=== PATIENT | male | born 1960 | race Caucasian/White ===

== ENCOUNTER 2017-09-20 12:54 | Emergency (ER) | payer MEDICARE, OTHER ==
[~2017-09-20] VITALS: Ht 182.9 cm; Wt 109.1 kg
[2017-09-20 12:57] VITALS: Ht 182.9 cm; Wt 109.1 kg
[2017-09-20] MEDS ORDERED: LORAZEPAM 2 MG INJ IV STA (13:03)
[2017-09-20] MEDS ORDERED: SOD CHLORIDE 0.9% 1,000 ML IV ONE (13:30)
[2017-09-20 13:36] LABS: BASOPHILS % 0.4 % (0.0-2.0); EOSINOPHILS # 0.3 10^3/ul (0.0-0.5); EOSINOPHILS % 3.7 % (0.0-7.0); HEMATOCRIT 38.2 % (42.0-52.0); HEMOGLOBIN 13.7 g/dl (14.0-18.0); LYMPHOCYTES # 1.7 10^3/ul (0.8-2.9); LYMPHOCYTES % 24.5 % (15.0-51.0); MEAN CORPUSCULAR HEMOGLOBIN 31.6 pg (29.0-33.0); MEAN CORPUSCULAR HGB CONC 35.9 g/dl (32.0-37.0); MEAN PLATELET VOLUME 8.8 fl (7.4-10.4); MONOCYTE # 0.8 10^3/ul (0.3-0.9); MONOCYTES % 11.7 % (0.0-11.0); NEUTROPHILS % 59.3 % (39.0-77.0); PLATELET COUNT 280 10^3/UL (140-415); RED BLOOD COUNT 4.34 10^6/ul (4.70-6.10); RED CELL DISTRIBUTION WIDTH 12.7 % (11.5-14.5); WHITE BLOOD COUNT 6.8 10^3/ul (4.8-10.8)
[2017-09-20 13:54] LABS: ALANINE AMINOTRANSFERASE 151 IU/L (13-69); ALBUMIN 4.4 g/dl (3.3-4.9); ALBUMIN/GLOBULIN RATIO 1.29; ALKALINE PHOSPHATASE 81 IU/L (42-121); ANION GAP 17 (8-16); ASPARTATE AMINO TRANSFERASE 108 IU/L (15-46); BILIRUBIN,INDIRECT 1.1 mg/dl (0-1.1); BILIRUBIN,TOTAL 1.1 mg/dl (0.2-1.3); BLOOD UREA NITROGEN 18 mg/dl (7-20); CALCIUM 8.9 mg/dl (8.4-10.2); CARBON DIOXIDE 24 mmol/L (21-31); CHLORIDE 104 mmol/L (97-110); CREATININE 1.36 mg/dl (0.61-1.24); GLUCOSE 102 mg/dl (70-220); POTASSIUM 3.8 mmol/L (3.5-5.1); SODIUM 141 mmol/L (135-144); TOTAL PROTEIN 7.8 g/dl (6.1-8.1)
[2017-09-20 13:56] LABS: ACETAMINOPHEN < 10.0 ug/ml (10.0-30.0); ETHANOL < 10.0 mg/dl; SALICYLATE < 1.0 mg/dl (5.0-30.0)
[2017-09-20 14:11] LABS: TROPONIN-I < 0.012 ng/ml (0.00-0.12)
[2017-09-20 17:04] VITALS: BP 149/90; PULSE 76; RESP 12; TEMP 98.3
--- NOTE | 2017-09-20 21:44 | ERD ---
ER Documentation Chief Complaint Chief Complaint "not feeling well", shaking/thrusty/bodyache used meth x8d/heroine x3days HPI 57-year-old man brought in by EMS after using methamphetamines, he feels agitated complains of body aches and withdrawal. He has a history of heroin abuse states he has not used heroin since yesterday. He is more concerned about his methamphetamine a use and symptoms of anxiety. He denies chest pain or shortness of breath, no fevers or chills, no vomiting or diarrhea. Patient was transported here by EMS without further complaints ROS All systems reviewed and are negative except as per history of present illness. Allergies Allergies: Coded Allergies: No Known Allergy (Unverified , 09/20/17) PMhx/Soc Drug abuse History of Surgery: No Anesthesia Reaction: No Hx Neurological Disorder: Yes (nerve damage to legs) Hx Respiratory Disorders: No Hx Cardiac Disorders: Yes (HTN/HYPERLIPIDEMIA) Hx Psychiatric Problems: No Hx Miscellaneous Medical Probl: Yes (DM) Hx Alcohol Use: Yes (occassional ) Hx Substance Use: Yes (meth x8days/heroine x2days last used in am) Hx Tobacco Use: Yes Smoking Status: Current every day smoker FmHx Family History: No diabetes Physical Exam Vitals Vital Signs Date Time Temp Pulse Resp B/P Pulse Ox O2 Delivery O2 Flow Rate FiO2 09/20/17 17:04 98.3 76 12 149/90 99 Room Air 09/20/17 15:00 98.3 94 12 145/90 97 Room Air 09/20/17 12:57 98.3 95 12 144/82 98 Physical Exam GENERAL: Well-developed, well-nourished, well-hydrated, in no apparent distress , looks nontoxic in appearance HEENT: Moist mucous membranes, pink conjunctiva, no cervical spine tenderness or step-off deformities, no goiter, no jaundice or icterus, extraocular movements intact without pain. No submandibular induration, and no pharyngeal erythema NEURO: Alert and oriented 3, cranial nerves II through XII intact bilaterally, pupils equal round reactive to light, no focal deficits or facial asymmetry, sensation intact distally Strength 5/5 in upper and lower extremities bilaterally CARDIAC: Regular rate and rhythm, no murmurs rubs or gallops LUNGS: Clear bilaterally no wheezing crackles or stridor ABDOMEN: Soft nontender, no guarding, no rigidity, no rebound, no psoas sign no obturator sign. Normoactive bowel sounds SKIN: Warm and dry to touch, no abrasions, contusions, or hematomas, no lacerations, no ecchymosis, no target lesions, and without ulcers EXTREMITIES: No clubbing cyanosis or edema, calves are bilaterally symmetrical, no Homans sign, no popliteal cord sign. Distal pulses equal and bilateral PSYCH: Normal affect without agitation or irritability Result Diagram: 09/20/17 1317 09/20/17 1317 Results 24 hrs Laboratory Tests Test 09/20/17 13:17 White Blood Count 6.810^3/ul Red Blood Count 4.3410^6/ul Hemoglobin 13.7g/dl Hematocrit 38.2% Mean Corpuscular Volume 88.0fl Mean Corpuscular Hemoglobin 31.6pg Mean Corpuscular Hemoglobin Concent 35.9g/dl Red Cell Distribution Width 12.7% Platelet Count 21909^3/UL Mean Platelet Volume 8.8fl Neutrophils % 59.3% Lymphocytes % 24.5% Monocytes % 11.7% Eosinophils % 3.7% Basophils % 0.4% Nucleated Red Blood Cells % 0.0/100WBC Neutrophils # 4.010^3/ul Lymphocytes # 1.710^3/ul Monocytes # 0.810^3/ul Eosinophils # 0.310^3/ul Basophils # 0.010^3/ul Nucleated Red Blood Cells # 0.010^3/ul Sodium Level 141mmol/L Potassium Level 3.8mmol/L Chloride Level 104mmol/L Carbon Dioxide Level 24mmol/L Anion Gap 17 Blood Urea Nitrogen 18mg/dl Creatinine 1.36mg/dl Glucose Level 102mg/dl Calcium Level 8.9mg/dl Total Bilirubin 1.1mg/dl Direct Bilirubin 0.00mg/dl Indirect Bilirubin 1.1mg/dl Aspartate Amino Transf (AST/SGOT) 108IU/L Alanine Aminotransferase (ALT/SGPT) 151IU/L Alkaline Phosphatase 81IU/L Troponin I < 0.012ng/ml Total Protein 7.8g/dl Albumin 4.4g/dl Globulin 3.40g/dl Albumin/Globulin Ratio 1.29 Salicylates Level < 1.0mg/dl Acetaminophen Level < 10.0ug/ml Ethyl Alcohol Level < 10.0mg/dl Current Medications Medications (Trade) Dose Ordered Sig/Joycelyn Route PRN Reason Start Time Stop Time Status Last Admin Dose Admin Lorazepam 1 mg 1 mg ONCE STAT IV 09/20/17 13:03 09/20/17 13:05 DC 09/20/17 13:14 Sodium Chloride (NS) 1,000 ml @ 1,000 mls/hr Q1H ONCE IV 09/20/17 13:30 09/20/17 14:29 DC 09/20/17 13:15 Procedures/MDM IV line was established patient was placed on summer law associate rhythm strip revealed a sinus rhythm at about 80 bpm with upright P and T waves. Patient was afebrile I administered 1 L normal saline intravenously and lorazepam 1 mg IV 1. CBC and electrolytes were normal, liver function tests were normal, troponin was negative. Patient refused to provide urine, aspirin, alcohol, Tylenol levels negative. Observation Note: Time: 5 hours Family Hx: No Hypertension Evaluation: Multiple exams showed improving symptoms and no evidence of worsening mental status or active withdrawal. Vital signs remained normal and patient felt much better after above interventions. firestop/containment worker consultation was performed in the ED, both verbal and written recommendations were provided to the patient. Differential diagnoses considered, included but not limited to acute coronary syndrome, pulmonary embolism, aortic dissection, abdominal aortic aneurysm, sepsis, stroke, meningitis, encephalitis, pneumonia, appendicitis, cholecystitis , bowel obstruction, pyelonephritis, nephrolithiasis, cystitis, as well as metabolic, hematologic, and electrolyte abnormalities. As well as abscess, cellulitis, fractures, and dislocations. Patient feels much better at this time, and vital signs are normal, symptoms have improved. I did give strict instructions to return to the ED if symptoms continue or worsen, patient will otherwise follow-up with primary care physician. Patient understood instructions and agreed to plan. Disclaimer: Inadvertent spelling and grammatical errors are likely due to EHR/ dictation software use and do not reflect on the overall quality of patient care. Also, please note that the electronic time recorded on this note does not necessarily reflect the actual time of the patient encounter. Departure Diagnosis: Primary Impression: Methamphetamine abuse Additional Impression: Anxiety attack Condition: Good Patient Instructions: Treating Heroin Addiction, Understanding Methamphetamine Abuse and Addiction, Anxiety Reaction NENA MULLEN MD Sep 20, 2017 21:43
== END 2017-09-20 17:07 | disposition home or self-care (01) ==
LOC: E/R 12:54
DX: F15.10 Other stimulant abuse, uncomplicated (principal); F41.0 Panic disorder [episodic paroxysmal anxiety]; I10 Essential (primary) hypertension; E11.9 Type 2 diabetes mellitus without complications; F17.210 Nicotine dependence, cigarettes, uncomplicated
CPT/HCPCS: 36415; 80053; 80306; 84484; 85025; 96374; 99284; J2060; J7030

== ENCOUNTER 2017-10-07 13:05 | Observation (INO) | payer MEDICARE, OTHER ==
[~2017-10-07] VITALS: Ht 182.9 cm; Wt 110.0 kg
[2017-10-07 13:09] VITALS: Ht 182.9 cm; Wt 110.0 kg
--- NOTE | 2017-10-07 13:34 | ERD ---
ER Documentation Chief Complaint Chief Complaint BIBA FOR NON RADIATING CP 02/17. HPI Patient is a 57-year-old male who presents with sudden onset, waxing and waning substernal chest pain that is pressure-like since around 10:30 AM. He states that it occurred while he was in a meeting at rest. He reports associated dyspnea, lightheadedness, mild nausea and diaphoresis. He denies radiation of pain to neck, arms or back. He states that the intensity diminished significantly after receiving aspirin and nitroglycerin, but has recurred slightly since that time. ROS All systems reviewed and are negative except as per history of present illness. Medications Home Meds Active Scripts Darunavir/Cobicistat (Prezcobix 800 mg-150 mg Tablet) 1 Each Tablet, 1 EACH PO DAILY for 90 Days, TAB Prov:RUDOPLH WRIGHT MD 10/07/17 Emtricitabine/Tenofov Alafenam (Descovy 200-25 mg Tablet) 1 Each Tablet, 1 EACH PO DAILY for 90 Days, TAB Prov:RUDOLPH WRIGHT MD 10/07/17 Reported Medications Ibuprofen* (Ibuprofen*) 800 Mg Tab, 800 MG PO TID Y for PAIN, TAB 10/07/17 Aspirin* (Aspirin* Chew) 81 Mg Tab.chew, 81 MG PO DAILY, TAB.CHEW 10/07/17 Tamsulosin Hcl* (Tamsulosin Hcl*) 0.4 Mg Cap.er.24h, 0.4 MG PO HS, CAP 10/07/17 Discontinued Reported Medications Emtricitabine/Tenofov Alafenam (Descovy 200-25 mg Tablet) 1 Each Tablet, 1 EACH PO DAILY, TAB 10/07/17 Allergies Allergies: Coded Allergies: No Known Allergy (Unverified , 09/20/17) PMhx/Soc Past medical history: CVA, HIV Past surgical history: Stent in artery, question carotid Social history: Patient smokes methamphetamine, states last use was September 14, but had ER visit on September 20 for intoxication. Smoked cigarettes in the past but quit, resumed 1 week ago. Denies alcohol. History of Surgery: No Anesthesia Reaction: No Hx Neurological Disorder: Yes (nerve damage to legs) Hx Respiratory Disorders: No Hx Cardiac Disorders: Yes (HTN/HYPERLIPIDEMIA) Hx Psychiatric Problems: No Hx Miscellaneous Medical Probl: Yes (DM,HIV) Hx Alcohol Use: Yes (occassional ) Hx Substance Use: Yes (METH) Hx Tobacco Use: Yes Smoking Status: Current some day smoker FmHx Family History: coronary disease (Brother at age 52), No diabetes Physical Exam Vitals Vital Signs Date Time Temp Pulse Resp B/P Pulse Ox O2 Delivery O2 Flow Rate FiO2 10/07/17 19:29 82 20 116/80 100 Room Air 10/07/17 15:00 86 17 113/75 100 Room Air 10/07/17 13:31 89 17 113/75 100 Room Air 10/07/17 13:09 98.4 82 18 113/75 99 Physical Exam Const: Alert, no acute distress Head: Atraumatic Eyes: Normal Conjunctiva, No pallor, no icterus ENT: Normal External Ears, Nose and Mouth. Mucous membranes moist Neck: Full range of motion. No JVD Resp: Clear to auscultation bilaterally, No wheezes, no rales Cardio: Regular rate and rhythm, no murmurs. Mild parasternal tenderness, palpation does not reproduce pain Abd: Soft, non tender, non distended. Skin: No petechiae or rashes Back: No midline or flank tenderness Ext: No cyanosis, or edema Neur: Awake and alert, Cranial nerves II through XII intact bilaterally, strength and sensation grossly intact in 4 extremities. Psych: Normal Mood and Affect Result Diagram: 10/07/17 1330 10/07/17 1330 Results 24 hrs Laboratory Tests Test 10/07/17 13:30 10/07/17 14:18 White Blood Count 7.010^3/ul Red Blood Count 4.3910^6/ul Hemoglobin 13.6g/dl Hematocrit 38.7% Mean Corpuscular Volume 88.2fl Mean Corpuscular Hemoglobin 31.0pg Mean Corpuscular Hemoglobin Concent 35.1g/dl Red Cell Distribution Width 12.7% Platelet Count 32029^3/UL Mean Platelet Volume 9.0fl Neutrophils % 53.6% Lymphocytes % 33.0% Monocytes % 9.3% Eosinophils % 3.4% Basophils % 0.4% Nucleated Red Blood Cells % 0.0/100WBC Neutrophils # 3.710^3/ul Lymphocytes # 2.310^3/ul Monocytes # 0.710^3/ul Eosinophils # 0.210^3/ul Basophils # 0.010^3/ul Nucleated Red Blood Cells # 0.010^3/ul Sodium Level 140mmol/L Potassium Level 4.1mmol/L Chloride Level 106mmol/L Carbon Dioxide Level 27mmol/L Anion Gap 11 Blood Urea Nitrogen 19mg/dl Creatinine 1.35mg/dl Glucose Level 98mg/dl Calcium Level 8.7mg/dl Troponin I < 0.012ng/ml B-Type Natriuretic Peptide 13PG/ML Urine Opiates Screen Negative Urine Barbiturates Negative Urine Amphetamines Screen Negative Urine Benzodiazepines Screen Positive Urine Cocaine Screen Negative Urine Cannabinoids Negative Current Medications Medications (Trade) Dose Ordered Sig/Joycelyn Route PRN Reason Start Time Stop Time Status Last Admin Dose Admin IV Flush (NS 3 ml) 3 ml PER PROTOCOL IV 10/07/17 16:30 UNV Ondansetron HCl (Zofran Tab) 4 mg Q6H PRN PO NAUSEA AND/OR VOMITING 10/07/17 16:30 UNV Aspirin (Aspirin) 81 mg DAILY PO 10/08/17 09:00 UNV Acetaminophen (Tylenol Tab) 650 mg Q6H PRN PO PAIN LEVEL 1-3 OR FEVER 10/07/17 16:30 UNV Acetaminophen/ Hydrocodone Bitart ([place] (5/325)) 1 tab Q6H PRN PO PAIN LEVEL 4-6 10/07/17 16:30 UNV Enoxaparin Sodium (Lovenox) 40 mg DAILY SC 10/08/17 09:00 UNV Tamsulosin HCl (Flomax) 0.4 mg HS PO 10/07/17 21:00 UNV Miscellaneous Information 1 each DAILY PO 10/08/17 09:00 10/08/17 09:00 DC Ondansetron HCl (Zofran Inj) 4 mg ER BRIDGE PRN IV NAUSEA AND/OR VOMITING 10/07/17 16:30 10/08/17 16:29 Acetaminophen (Tylenol Tab) 650 mg ER BRIDGE PRN PO MILD PAIN/FEVER 10/07/17 16:30 10/08/17 16:29 Cilostazol (Pletal) 100 mg BID PO 10/07/17 21:00 10/07/17 21:00 DC Chlorpromazine (Thorazine) 25 mg DAILY PO 10/08/17 09:00 10/08/17 09:00 DC Levothyroxine Sodium (Synthroid) 50 mcg DAILY PO 10/08/17 09:00 10/08/17 09:00 DC Metoprolol Tartrate (Lopressor) 25 mg BID PO 10/07/17 21:00 10/07/17 21:00 DC Miscellaneous Information 1 each DAILY PO 10/08/17 09:00 UNV Miscellaneous Information 1 each DAILY PO 10/08/17 09:00 UNV Procedures/MDM EKG read by me: Time 1305, rate 78 Rhythm: Normal sinus [place]: Normal Intervals: Normal ST-T waves: no ischemic changes Ectopy: No Q-waves: No Impression: No evidence of ischemia or arrhythmia MDM: Patient is a 57-year-old male who presents with acute substernal chest pain with some typical features for approximately 3 hours. He states that it has been waxing and waning. Chest x-ray and EKG are unremarkable. First troponin is negative. The patient received aspirin and nitroglycerin and had some relief. The patient has several risk factors including family history, history of vascular disease and drug abuse. I will admit him to telemetry observation for further cardiac workup. There are no features concerning for aortic dissection or pulmonary embolism. Departure Diagnosis: Primary Impression: Chest pain Chest pain type: unspecified Qualified Code: R07.9 - Chest pain, unspecified type Additional Impression: Methamphetamine abuse Condition: REYNALDO Barth MD Oct 07, 2017 13:34
[2017-10-07 13:50] LABS: BASOPHILS % 0.4 % (0.0-2.0); EOSINOPHILS # 0.2 10^3/ul (0.0-0.5); EOSINOPHILS % 3.4 % (0.0-7.0); HEMATOCRIT 38.7 % (42.0-52.0); HEMOGLOBIN 13.6 g/dl (14.0-18.0); LYMPHOCYTES # 2.3 10^3/ul (0.8-2.9); MEAN CORPUSCULAR HGB CONC 35.1 g/dl (32.0-37.0); MEAN CORPUSCULAR VOLUME 88.2 fl (82.0-101.0); MONOCYTE # 0.7 10^3/ul (0.3-0.9); MONOCYTES % 9.3 % (0.0-11.0); NEUTROPHIL # 3.7 10^3/ul (1.6-7.5); NEUTROPHILS % 53.6 % (39.0-77.0); PLATELET COUNT 229 10^3/UL (140-415); RED BLOOD COUNT 4.39 10^6/ul (4.70-6.10); RED CELL DISTRIBUTION WIDTH 12.7 % (11.5-14.5)
--- NOTE | 2017-10-07 13:56 | RADRPT ---
PROCEDURE: Chest x-ray CLINICAL INDICATION: Chest pain TECHNIQUE: Chest single view COMPARISON: None FINDINGS: The heart is normal in size. The pulmonary vessels are normal in caliber. The lungs are clear. Th e costophrenic angles are sharp. The visualized bony thorax is unremarkable. IMPRESSION: No acute cardiopulmonary disease. RPTAT: HH .Ambrocio Hernandez MD, Date Time Electronically viewed and signed by .Ambrocio Hernandez MD, MD on 10/07/2017 13:55 .W/
[2017-10-07 14:07] LABS: ANION GAP 11 (8-16); BLOOD UREA NITROGEN 19 mg/dl (7-20); CALCIUM 8.7 mg/dl (8.4-10.2); CARBON DIOXIDE 27 mmol/L (21-31); CHLORIDE 106 mmol/L (97-110); CREATININE 1.35 mg/dl (0.61-1.24); GLUCOSE 98 mg/dl (70-220); POTASSIUM 4.1 mmol/L (3.5-5.1); SODIUM 140 mmol/L (135-144)
[2017-10-07 14:20] LABS: B-TYPE NATRIURETIC PEPTIDE 13 PG/ML (0-125)
[2017-10-07 14:23] LABS: TROPONIN-I < 0.012 ng/ml (0.00-0.12)
[2017-10-07] MEDS ORDERED: EMTR1TAB16 PO ×2 (14:39→17:07)
[2017-10-07] MEDS ORDERED: TAMS0.4C2 PO (14:39)
[2017-10-07] MEDS ORDERED: ASPI81TA3 PO (14:39)
[2017-10-07] MEDS ORDERED: IBUP800T25 PO (14:40)
[2017-10-07 14:44] LABS: BARBITURATES Negative (NEGATIVE)
[2017-10-07 14:46] LABS: BENZODIAZEPINES Positive (NEGATIVE); CANNABINOIDS Negative (NEGATIVE); COCAINE Negative (NEGATIVE); OPIATES Negative (NEGATIVE)
--- NOTE | 2017-10-07 16:27 | HP ---
Date/Time of Note Date/Time of Note DATE: 10/07/17 TIME: 16:27 Assessment/Plan VTE Prophylaxis VTE Prophylaxis Intervention: SCD's Lines/Catheters IV Catheter Type (from Nrsg): Saline Lock Assessment/Plan Assessment/Plan 57 yo M with HIV on HAART, hx polysubstance abuse here with 1 day of chest pain. HEART score is 3-4 (hx slightly v moderately suspicious (0 v 1 point), age (1 point), 3+ risk factors (obesity, tob hx, CVA hx)--2 points). PLAN formal acs r/o with serial trops and tele monitoring cardiology eval in AM for stress eval TTE, a1c, lipids cont asa HIV: cont HAART h/o CVA: cont asa BPH: cont flomax h/o polysubstance abuse: limit narcotics cardiac diet but NPO at mn DVT prophx HPI/ROS Admit Date/Time Admit Date/Time Hx of Present Illness CC chest pain x 1 day HPI 57 yo M with pmhx CVA, BPH, HIV on HAART (last VL UD and CD4 ~1400 4 mos ago), polysubstance abuse (heroin, methamphetamine) who presents with 1 day of chest pain. Pt seen here in the ER 2 weeks ago for feeling unwell in the setting of polysubstance abuse, then has spent the past 2 weeks in 2 different detox facilities ([facility] and a place he cannot recall) and has been in inpatient substance abuse treatment for the past 2 days. Pt reports intermittent chest discomfort since this AM. Does not endorse SOB or LE swelling. Does not report fevers, chills, rashes, abd pain, nausea, or vomiting Re pt's CVA, states that was in December of this year and he had 2 stents placed into his neck at that time? PMH/Family/Social Past Medical History as per HPI home meds: flomax, asa, descovy, prezcobix Social History lives at a residential substance abuse facility Smoking Status: Former smoker Exam/Review of Systems Vital Signs Vitals Vital Signs Date Time Temp Pulse Resp B/P Pulse Ox O2 Delivery O2 Flow Rate FiO2 10/07/17 13:31 89 17 113/75 100 Room Air 10/07/17 13:09 98.4 Exam Exam nad EOMI MMM no mrg lungs clear abd soft no rashes no edema labs reviewed EKG report reviewed Labs Result Diagram: 10/07/17 1330 10/07/17 1330 RUDOLPH WRIGHT MD Oct 07, 2017 16:27
[2017-10-07] MEDS ORDERED: ONDANSETRON 4 MG INJ IV PRN (16:30)
[2017-10-07] MEDS ORDERED: HYDROCODONE/APAP (5/325) TAB PO PRN (16:30)
[2017-10-07] MEDS ORDERED: ACETAMINOPHEN 325 MG TAB PO PRN ×2 (16:30)
[2017-10-07] MEDS ORDERED: ONDANSETRON 4 MG TAB PO PRN (16:30)
[2017-10-07] MEDS ORDERED: NACL 0.9% 3 ML SYG IV SCH (16:30)
[2017-10-07] MEDS ORDERED: DARU1TAB PO (17:08)
[2017-10-07] MEDS ORDERED: CILOSTAZOL 100 MG TAB PO SCH (21:00)
[2017-10-07] MEDS ORDERED: METOPROLOL 25 MG TAB PO SCH (21:00)
[2017-10-07] MEDS ORDERED: TAMSULOSIN (SR) 0.4 MG CAP PO SCH (21:00)
[2017-10-07 21:29] VITALS: PULSE 82
[2017-10-08] VITALS (9 sets, daily range): BP systolic 105–124; BP diastolic 56–69; PULSE 79–86; RESP 18–20
[2017-10-08] MEDS ORDERED: TENOFOVIR ALAFENAMIDE XX SCH (09:00)
[2017-10-08] MEDS ORDERED: NON-FORMULARY/PATIENT OWN MED (Darunavir/Cobicistat (Prezcobix 800 mg-150 mg Tablet) 1 EAC XX SCH (09:00)
[2017-10-08] MEDS ORDERED: EMTRICITABINE XX SCH (09:00)
[2017-10-08] MEDS ORDERED: ASPIRIN 81 MG TAB PO SCH (09:00)
[2017-10-08] MEDS ORDERED: ENOXAPARIN 40 MG/0.4 ML SYG SC SCH (09:00)
[2017-10-08] MEDS ORDERED: NON-FORMULARY/PATIENT OWN MED (Emtricitabine/Tenofov Alafenam (Descovy 200-25 mg Tablet) 1 PO SCH (09:00)
[2017-10-08] MEDS ORDERED: CHLORPROMAZINE 25 MG TAB PO SCH (09:00)
[2017-10-08] MEDS ORDERED: NON-FORMULARY/PATIENT OWN MED (Emtricitabine/Tenofov Alafenam (Descovy 200-25 mg Tablet) 1 XX SCH (09:00)
[2017-10-08] MEDS ORDERED: DARUNAVIR XX SCH (09:00)
[2017-10-08] MEDS ORDERED: COBICISTAT XX SCH (09:00)
[2017-10-08] MEDS ORDERED: LEVOTHYROXINE 50 MCG TAB PO SCH (09:00)
[2017-10-08 09:30] LABS: BASOPHILS % 0.4 % (0.0-2.0); EOSINOPHILS # 0.2 10^3/ul (0.0-0.5); EOSINOPHILS % 4.7 % (0.0-7.0); HEMATOCRIT 42.9 % (42.0-52.0); LYMPHOCYTES # 1.6 10^3/ul (0.8-2.9); LYMPHOCYTES % 31.1 % (15.0-51.0); MEAN CORPUSCULAR HEMOGLOBIN 30.9 pg (29.0-33.0); MEAN CORPUSCULAR VOLUME 88.5 fl (82.0-101.0); MEAN PLATELET VOLUME 9.1 fl (7.4-10.4); MONOCYTE # 0.5 10^3/ul (0.3-0.9); MONOCYTES % 9.3 % (0.0-11.0); NEUTROPHIL # 2.8 10^3/ul (1.6-7.5); NEUTROPHILS % 54.3 % (39.0-77.0); PLATELET COUNT 253 10^3/UL (140-415); RED BLOOD COUNT 4.85 10^6/ul (4.70-6.10); RED CELL DISTRIBUTION WIDTH 12.5 % (11.5-14.5); WHITE BLOOD COUNT 5.1 10^3/ul (4.8-10.8)
[2017-10-08 09:52] LABS: ALBUMIN 3.8 g/dl (3.3-4.9); ALBUMIN/GLOBULIN RATIO 1.18; BILIRUBIN,INDIRECT 0.6 mg/dl (0-1.1); BILIRUBIN,TOTAL 0.6 mg/dl (0.2-1.3); CALCIUM 9.3 mg/dl (8.4-10.2); CHOL/HDL RATIO 3.3 RATIO; CREATININE 1.31 mg/dl (0.61-1.24); POTASSIUM 4.7 mmol/L (3.5-5.1)
--- NOTE | 2017-10-08 12:09 | RADRPT ---
Echocardiogram Report Patient Name: RADHA CARRANZA Gender: Male Date: 1960 Study Date: 08-Oct-2017 Special Education Educational Assistant: Hernandez Caldera [facility] Location: 5560 Ref. Physician: RUDOLPH WRIGHT Quality: Good Procedures: Transthoracic echocardiogram with complete 2D, M-Mode, and doppler examination. Indications: Chest Pain. 2D/M Mode Doppler Measurement Value Normal Ranges Measurement Value Normal Ranges LVIDd 2D 4.7 3.5 - 5.6 cm AV Peak Paulie 1.1 m/sec LVIDs 2D 3.5 2.1 - 4.1 cm AV Peak PG 4.8 mmHg LVPWd 2D 0.9 0.6 - 1.1 cm LVOT Peak Paulie 1.0 m/sec IVSd 2D 0.9 0.6 - 1.1 cm LVOT Peak PG 4.2 mmHg AoR Diam 2D 2.9 2.0 - 3.7 cm MV E Peak Paulie 0.7 m/sec EDV 2D 101.2 cm3 MV A Peak Paulie 0.7 m/sec ESV 2D 44.5 cm3 MV E/A 0.9 LA Dimen 2D 3.4 2.3 - 4.0 cm MV Decel Time 247 msec MV Decel [place] 3 MV E/A 0.9 TR Peak Paulie 2.0 m/sec TR Peak PG 16.6 mmHg RVSP 20.0 mmHg Findings Left Ventricle: Normal left ventricular systolic function. Normal left ventricular cavity size. Normal left ventricular wall thickness. Ejection fraction is visually estimated at 55 %. Tissue Doppler/Mitral Doppler indices are consistent with impaired relaxation (Stage I diastolic dysfunction). Right Ventricle: Normal right ventricular size. Normal right ventricular systolic function. Left Atrium: The left atrium is normal in size. Right Atrium: The right atrium is normal in size. Mitral Valve: Mitral valve leaflets appear mildly thickened. Mild mitral annular calcification. Trace mitral regurgitation. Aortic Valve: Normal appearance of the aortic valve. No significant aortic stenosis or insufficiency. Tricuspid Valve: Normal appearance of the tricuspid valve. Estimated peak PA systolic pressure 20 mmHg. There is trace tricuspid regurgitation. Pulmonic Valve: Normal pulmonic valve appearance. Pericardium: Normal pericardium with no significant pericardial effusion. Aorta: Normal aortic root. IVC: Normal size and normal respiratory collapse consistent with normal right atrial pressure. Conclusions Normal left ventricular systolic function. Normal left ventricular cavity size. Normal left ventricular wall thickness. Ejection fraction is visually estimated at 55 %. Tissue Doppler/Mitral Doppler indices are consistent with impaired relaxation (Stage I diastolic dysfunction). Normal right ventricular size. Normal right ventricular systolic function. The left atrium is normal in size. The right atrium is normal in size. No significant valvular stenosis or regurgitation seen. Normal pericardium with no significant pericardial effusion. Electronically Signed By: Mykel Thomas 08-Oct-2017 12:08:25 -0800 Patient Name: RADHA CARRANZA Study Date: 08-Oct-2017 [id number]
[2017-10-08] MEDS ORDERED: DARUNAVIR/COBICISTAT 1 EACH TABLET PO SCH (13:00)
--- NOTE | 2017-10-08 13:18 | CONS ---
Date/Time of Note Date/Time of Note DATE: 10/08/17 TIME: 13:12 Assessment/Plan Assessment/Plan Additional Assessment/Plan Chest discomfort, resolved Preserved ejection fraction HIV-positive History of methamphetamine use -Patient with chest discomfort at rest 2 days prior with no further symptoms. Symptoms are not affected by activity and prior to this episode, would run and bike ride approximately 4-5 miles at a time. Serial cardiac enzymes remain negative, ECG with no significant ischemic abnormalities and echocardiogram with preserved ejection fraction. Patient requesting to be discharged and will follow-up as an outpatient if further symptoms. This is reasonable given patient with no further symptoms and negative workup as mentioned above. Consultation Date/Type/Reason Admit Date/Time Type of Consultation: cv Reason for Consultation Chest pain Hx of Present Illness This is a 57-year-old male who presents with 2 days symptoms of chest pain. Patient woke up with pain the day prior to admission. Pain is aching like and burning in the mid chest. Activity does not improve or worsen the symptoms. Possibly arm movements could affect the chest discomfort. There was no associated shortness of breath, nausea. He is currently in inpatient drug rehab. He did let 1 of his superiors know and because of that, he was brought to the emergency room. He currently denies any chest pain, shortness of breath , palpitations or dizziness. Prior to being in rehab, patient was quite active , bike riding 4-5 miles and running on a frequent basis without exertional chest pain, shortness of breath or or syncope. 12 point review of systems was performed with all pertinent positives and negatives mentioned above and all else is negative Past Medical History HIV positive Family History Significant Family History: heart disease (Brother with heart disease in his 50s) Social History Smoking Status: Former smoker Drug Use: other (History of meth use but quit September 20 and currently in rehab) Exam/Review of Systems Vital Signs Vitals Vital Signs Date Time Temp Pulse Resp B/P Pulse Ox O2 Delivery O2 Flow Rate FiO2 10/08/17 12:21 86 10/08/17 11:36 98.4 19 118/62 95 10/07/17 19:29 Room Air Intake and Output 10/07/17 10/07/17 10/08/17 15:00 23:00 07:00 Intake Total 500 ml Balance 500 ml Exam No apparent distress Constitutional: alert, oriented Head: normocephalic Respiratory: clear to auscultation, normal air movement Cardiovascular: other (S1-S2 heard), regular rate and rhythm Gastrointestinal: bowel sounds, non-tender, soft Extremities: other (No edema) Results Result Diagram: 10/08/17 0844 10/08/17 0844 Results 24 hrs Laboratory Tests Test 10/07/17 13:30 10/07/17 14:18 10/07/17 19:55 10/08/17 01:55 White Blood Count 7.0 Red Blood Count 4.39 L Hemoglobin 13.6 L Hematocrit 38.7 L Mean Corpuscular Volume 88.2 Mean Corpuscular Hemoglobin 31.0 Mean Corpuscular Hemoglobin Concent 35.1 Red Cell Distribution Width 12.7 Platelet Count 229 Mean Platelet Volume 9.0 Neutrophils % 53.6 Lymphocytes % 33.0 Monocytes % 9.3 Eosinophils % 3.4 Basophils % 0.4 Nucleated Red Blood Cells % 0.0 Neutrophils # 3.7 Lymphocytes # 2.3 Monocytes # 0.7 Eosinophils # 0.2 Basophils # 0.0 Nucleated Red Blood Cells # 0.0 Sodium Level 140 Potassium Level 4.1 Chloride Level 106 Carbon Dioxide Level 27 Anion Gap 11 Blood Urea Nitrogen 19 Creatinine 1.35 H Glucose Level 98 Calcium Level 8.7 Troponin I < 0.012 < 0.012 < 0.012 B-Type Natriuretic Peptide 13 Urine Opiates Screen Negative Urine Barbiturates Negative Urine Amphetamines Screen Negative Urine Benzodiazepines Screen Positive Urine Cocaine Screen Negative Urine Cannabinoids Negative Test 10/08/17 08:44 White Blood Count 5.1 # Red Blood Count 4.85 Hemoglobin 15.0 Hematocrit 42.9 Mean Corpuscular Volume 88.5 Mean Corpuscular Hemoglobin 30.9 Mean Corpuscular Hemoglobin Concent 35.0 Red Cell Distribution Width 12.5 Platelet Count 253 Mean Platelet Volume 9.1 Neutrophils % 54.3 Lymphocytes % 31.1 Monocytes % 9.3 Eosinophils % 4.7 Basophils % 0.4 Nucleated Red Blood Cells % 0.0 Neutrophils # 2.8 Lymphocytes # 1.6 Monocytes # 0.5 Eosinophils # 0.2 Basophils # 0.0 Nucleated Red Blood Cells # 0.0 Sodium Level 140 Potassium Level 4.7 Chloride Level 106 Carbon Dioxide Level 28 Anion Gap 11 Blood Urea Nitrogen 17 Creatinine 1.31 H Glucose Level 99 Hemoglobin A1c 5.0 Calcium Level 9.3 Total Bilirubin 0.6 Direct Bilirubin 0.00 Indirect Bilirubin 0.6 Aspartate Amino Transf (AST/SGOT) 21 Alanine Aminotransferase (ALT/SGPT) 34 Alkaline Phosphatase 59 Total Protein 7.0 Albumin 3.8 Globulin 3.20 Albumin/Globulin Ratio 1.18 Triglycerides Level 100 Cholesterol Level 143 LDL Cholesterol, Calculated 80 HDL Cholesterol 43 Cholesterol/HDL Ratio 3.3 Medications Medications Current Medications Ondansetron HCl (Zofran Tab) 4 mg Q6H PRN PO NAUSEA AND/OR VOMITING; Start at 16:30 Aspirin (Aspirin) 81 mg DAILY PO Last administered on 10/08/17 09:45; Admin Dose 81 MG; Start 10/08/17 at 09:00 Acetaminophen (Tylenol Tab) 650 mg Q6H PRN PO PAIN LEVEL 1-3 OR FEVER; Start 10/07/17 at 16:30 Acetaminophen/ Hydrocodone Bitart (Arthur (5/325)) 1 tab Q6H PRN PO PAIN LEVEL 4 -6; Start 10/07/17 at 16:30 Enoxaparin Sodium (Lovenox) 40 mg DAILY SC Last administered on 10/08/17 09: 51; Admin Dose 40 MG; Start 10/08/17 at 09:00 Tamsulosin HCl (Flomax) 0.4 mg HS PO Last administered on 10/07/17 23:21; Admin Dose 0.4 MG; Start 10/07/17 at 21:00 Miscellaneous Information 1 each DAILY XX ; Start 10/08/17 at 09:00; Status UNV Miscellaneous Information (*Order Clarification Bulletin) MEDICATION REQUIRES CLARIFICATION: Q8H XX ; Start 10/08/17 at 09:00 Procedures Procedures ECG done today demonstrates sinus rhythm at 80 bpm, QRS 76 ms, no significant ischemic ST abnormalities Mykel Thomas DO Oct 08, 2017 13:18
--- NOTE | 2017-10-08 13:47 | DS ---
Date/Time of Note Date/Time of Note DATE: 10/08/17 TIME: 13:45 Discharge Summary Admission/Discharge Info Admit Date/Time Oct 07, 2017 at 16:19 Discharge Date/Time Discharge Diagnosis chest pain Patient Condition: Stable Consults cardiology Procedures troponins neg x 3 a1c 5.0 BNP 13 lipids: TC 143, TG 100, LDL 80, HDL 43 CXR no infiltrate TTE 11.29 Conclusions Normal left ventricular systolic function. Normal left ventricular cavity size. Normal left ventricular wall thickness. Ejection fraction is visually estimated at 55 %. Tissue Doppler/Mitral Doppler indices are consistent with impaired relaxation (Stage I diastolic dysfunction). Normal right ventricular size. Normal right ventricular systolic function. The left atrium is normal in size. The right atrium is normal in size. No significant valvular stenosis or regurgitation seen. Normal pericardium with no significant pericardial effusion. Hx of Present Illness CC chest pain x 1 day HPI 57 yo M with pmhx CVA, BPH, HIV on HAART (last VL UD and CD4 ~1400 4 mos ago), polysubstance abuse (heroin, methamphetamine) who presents with 1 day of chest pain. Pt seen here in the ER 2 weeks ago for feeling unwell in the setting of polysubstance abuse, then has spent the past 2 weeks in 2 different detox facilities ([place] and a place he cannot recall) and has been in inpatient substance abuse treatment for the past 2 days. Pt reports intermittent chest discomfort since this AM. Does not endorse SOB or LE swelling. Does not report fevers, chills, rashes, abd pain, nausea, or vomiting Re pt's CVA, states that was in December of this year and he had 2 stents placed into his neck at that time? Hospital Course Pt ruled out for acute coronary syndrome overnight with serial troponins and telemetry monitoring. TTE without significant dysfunction. Pt seen by cardiology service. Given pt's excellent functional status (able to bike several miles prior to admission), no indication for further inpatient cardiac evaluation per cardiology. Pt advised to follow up with PCP and schedule cardiology follow up if chest pain recurs. Home Meds Active Scripts Darunavir/Cobicistat (Prezcobix 800 mg-150 mg Tablet) 1 Each Tablet, 1 EACH PO DAILY for 90 Days, TAB Prov:RUDOLPH WRIGHT MD 10/07/17 Emtricitabine/Tenofov Alafenam (Descovy 200-25 mg Tablet) 1 Each Tablet, 1 EACH PO DAILY for 90 Days, TAB Prov:RUDOLPH WRIGHT MD 10/07/17 Reported Medications Ibuprofen* (Ibuprofen*) 800 Mg Tab, 800 MG PO TID Y for PAIN, TAB 10/07/17 Aspirin* (Aspirin* Chew) 81 Mg Tab.chew, 81 MG PO DAILY, TAB.CHEW 10/07/17 Tamsulosin Hcl* (Tamsulosin Hcl*) 0.4 Mg Cap.er.24h, 0.4 MG PO HS, CAP 10/07/17 Discontinued Reported Medications Emtricitabine/Tenofov Alafenam (Descovy 200-25 mg Tablet) 1 Each Tablet, 1 EACH PO DAILY, TAB 10/07/17 Follow-up Plan PCP within 7 days, Pt to call [facility] if any further chest pain Primary Care Provider Care Physician No Primary Pending Labs Laboratory Tests Test 10/07/17 14:18 10/07/17 19:55 10/08/17 01:55 10/08/17 08:44 Urine Opiates Screen Negative (NEGATIVE) Urine Barbiturates Negative (NEGATIVE) Urine Amphetamines Screen Negative (NEGATIVE) Urine Benzodiazepines Screen Positive (NEGATIVE) Urine Cocaine Screen Negative (NEGATIVE) Urine Cannabinoids Negative (NEGATIVE) Troponin I < 0.012ng/ml (0.00-0.12) < 0.012ng/ml (0.00-0.12) White Blood Count 5.110^3/ul (4.8-10.8) Red Blood Count 4.8510^6/ul (4.70-6.10) Hemoglobin 15.0g/dl (14.0-18.0) Hematocrit 42.9% (42.0-52.0) Mean Corpuscular Volume 88.5fl (82.0-101.0) Mean Corpuscular Hemoglobin 30.9pg (29.0-33.0) Mean Corpuscular Hemoglobin Concent 35.0g/dl (32.0-37.0) Red Cell Distribution Width 12.5% (11.5-14.5) Platelet Count 57945^3/UL (140-415) Mean Platelet Volume 9.1fl (7.4-10.4) Neutrophils % 54.3% (39.0-77.0) Lymphocytes % 31.1% (15.0-51.0) Monocytes % 9.3% (0.0-11.0) Eosinophils % 4.7% (0.0-7.0) Basophils % 0.4% (0.0-2.0) Nucleated Red Blood Cells % 0.0/100WBC (0.0-0.0) Neutrophils # 2.810^3/ul (1.6-7.5) Lymphocytes # 1.610^3/ul (0.8-2.9) Monocytes # 0.510^3/ul (0.3-0.9) Eosinophils # 0.210^3/ul (0.0-0.5) Basophils # 0.010^3/ul (0.0-0.1) Nucleated Red Blood Cells # 0.010^3/ul (0.0-0.0) Sodium Level 140mmol/L (135-144) Potassium Level 4.7mmol/L (3.5-5.1) Chloride Level 106mmol/L (97-110) Carbon Dioxide Level 28mmol/L (21-31) Anion Gap 11 (8-16) Blood Urea Nitrogen 17mg/dl (7-20) Creatinine 1.31mg/dl (0.61-1.24) Glucose Level 99mg/dl (70-220) Hemoglobin A1c 5.0% (0-5.9) Calcium Level 9.3mg/dl (8.4-10.2) Total Bilirubin 0.6mg/dl (0.2-1.3) Direct Bilirubin 0.00mg/dl (0.00-0.20) Indirect Bilirubin 0.6mg/dl (0-1.1) Aspartate Amino Transf (AST/SGOT) 21IU/L (15-46) Alanine Aminotransferase (ALT/SGPT) 34IU/L (13-69) Alkaline Phosphatase 59IU/L (42-121) Total Protein 7.0g/dl (6.1-8.1) Albumin 3.8g/dl (3.3-4.9) Globulin 3.20g/dl (1.3-3.2) Albumin/Globulin Ratio 1.18 Triglycerides Level 100mg/dl (0-149) Cholesterol Level 143mg/dl (100-200) LDL Cholesterol, Calculated 80mg/dl HDL Cholesterol 43mg/dl (28-71) Cholesterol/HDL Ratio 3.3RATIO Copies To: CC: Mykel Thomas ELLEN MD Oct 08, 2017 13:47
--- NOTE | 2017-10-08 13:58 | PDOCDIS ---
Discharge Instructions DIAGNOSIS Discharge Diagnosis chest pain CONDITION Patient Condition: Stable HOME CARE INSTRUCTIONS: Special Diet: cardiac FOLLOW UP/APPOINTMENTS Follow-up Plan Please schedule an appointment with a regular doctor within 7 days. Your kidney blood test here was slightly elevated. This could easily be because you are slightly dehydrated but you need to see a regular doctor to recheck this and make sure you don't have any kidney problems. Pt to call the pot reliner if you have any further chest pain Dr Mykel Thomas Office Address [facility] [address] [place] [id number] Office RUDOLPH WRIGHT MD Oct 08, 2017 13:58
--- NOTE | 2017-10-09 15:13 | RADRPT ---
Vent Rate: 80 bpm RR Interval: 0 msec TN Interval: 156 msec QRS Duration: 76 msec QT Interval: 372 msec QTC Interval: 429 msec P-R-T [place]: 75 - 78 - 77 degrees Normal sinus rhythm with sinus arrhythmia Normal ECG Electronically Signed By: Mykel Thomas [id number]
== END 2017-10-08 16:15 | disposition other institution (70) ==
LOC: E/R 13:05 → MS4 16:19
PROVIDERS: ADMIT Internal Medicine; ATTEND Internal Medicine
DX: R07.9 Chest pain, unspecified (principal); F15.10 Other stimulant abuse, uncomplicated; F11.10 Opioid abuse, uncomplicated; N40.0 Benign prostatic hyperplasia without lower urinary tract symptoms; I49.9 Cardiac arrhythmia, unspecified; I10 Essential (primary) hypertension; E78.5 Hyperlipidemia, unspecified; E11.9 Type 2 diabetes mellitus without complications; Z72.0 Tobacco use; Z98.61 Coronary angioplasty status; Z79.82 Long term (current) use of aspirin; Z86.73 Personal history of transient ischemic attack (TIA), and cerebral infarction without residual deficits; Z82.49 Family history of ischemic heart disease and other diseases of the circulatory system
CPT/HCPCS: 36415; 71010; 80048; 80053; 80061; 80307; 83036; 83880; 84484; 85025; 93005; 93306; 99285; G0378; J1650